=== PATIENT | female | born 1985 | race Caucasian/White ===

== ENCOUNTER 2017-12-30 20:49 | Emergency (ER) ==
[2017-12-30 21:01] VITALS: BP 124/90; TEMP 98.6; BMI 22.8
--- NOTE | 2017-12-30 21:53 | CT ---
EXAM: CT of the chest without contrast. HISTORY: Fever. COMPARISON: None. TECHNIQUE: Contiguous axial images were obtained from the lung apices to the upper abdomen at 5 mm i ntervals. Sagittal and coronal reformats reviewed. No contrast. FINDINGS: The lung windows show no lobar consolidation or effusion. Focal ground-glass opacities se en in the right upper lobe, measuring eight and 5 mm in size. No definite solid nodules are identifi ed. There is no pleural thickening or effusion. The pulmonary interstitium is normal. The heart si ze is within normal limits. There is no significant mediastinal or hilar adenopathy. Limited views of the upper abdomen are unremarkable. IMPRESSION: 1. No lobar consolidation or effusion. 2. Two small ground-glass opacities in the right upper lobe may be secondary to an early infectious process. Correlate with history symptoms recommend short-term follow-up in 3 months to exclude under lying nodularity.
--- NOTE | 2017-12-30 21:58 | CT ---
EXAM: CT maxillofacial without intravenous contrast 12/30/2017. Sagittal and coronal reformatted im ages obtained HISTORY: Question dental abscess COMPARISON: None. FINDINGS: No acute osseous abnormality of the facial bones. The paranasal sinuses are normally aera radha. Chronic leftward deviation of the osseous nasal septum. Severe dental disease. There are multiple bilateral maxillary and mandibular areas of dental abscess . There is no evidence of surrounding soft tissue abscess. The visualized portion of the airway remains patent and within the midline. IMPRESSION: 1. Severe dental disease. There are multiple areas of bilateral maxillary and mandibular dental abs cess. Dental consultation is advised. 2. There is no evidence of surrounding soft tissue abscess. 3. Normal aeration of the paranasal sinuses.
--- NOTE | 2017-12-30 22:02 | CT ---
EXAM: Noncontrast CT of the abdomen and pelvis. HISTORY: Fever. COMPARISON: None. TECHNIQUE: Contiguous axial images at 3 mm intervals were obtained from lung bases through the pelvi s. No contrast was given. Coronal reformats were reviewed. FINDINGS: The study is limited without contrast. CHEST: The lung bases show no lobar consolidation or effusion. The heart size is within normal limi ts. ABDOMEN: Evaluation of the soft tissue organs is limited without contrast. LIVER: Noncontrast images of the liver show no solid mass lesion or intrahepatic ductal dilatation. BILIARY: The gallbladder is normally distended. No gallstones are noted. No pericholecystic fluid or inflammation. The common bile duct is normal. SPLEEN: The spleen is unremarkable. PANCREAS: The pancreas shows no mass lesion or peripancreatic inflammation. ADRENAL GLANDS: The adrenal glands are normal. RENAL: The kidneys show no hydronephrosis or nephrolithiasis. There are no obstructing ureteral sto marci. No solid mass lesions are identified. RETROPERITONEUM: The aorta is unopacified. No aneurysm is identified. No significant aortic calcif ications are seen. There is no retroperitoneal or mesenteric adenopathy. BOWEL: The bowel is unopacified. There is no obstruction or inflammatory change. There is no free fluid or free air. No significant inflammatory changes are seen. The appendix is identified and is normal. PELVIS: BLADDER: The bladder is not well distended which limits evaluation.. GENITOURINARY STRUCTURES: Noncontrast images of the uterus and ovaries are unremarkable. OSSEOUS STRUCTURES: The osseous structures are normal for age. IMPRESSION 1. No acute intra-abdominal abnormality. Limited study without contrast. No obstructing ureteral s tones. 2. The appendix is normal.
[2017-12-30] MEDS ORDERED: AUGMENTIN 875-125 MG TAB PO STA (22:05)
[2017-12-30] MEDS ORDERED: K-DUR PO STA (22:06)
--- NOTE | 2017-12-30 22:08 | ED.PDOC ---
General ED Provider: Dr. MAKAYLA BAUER-ER Chief Complaint: Fever Stated Complaint: wilmer got fever and i think its coming from my teeth Time Seen by Physician: 22:06 Mode of Arrival: Walk-In Information Source: Patient Exam Limitations: No limitations Nursing and Triage Documentation Reviewed and Agree: Yes Does patient meet sepsis criteria?: No System Inflammatory Response Syndrome: Not Applicable Sepsis Protocol: For patient's 13 years and over: Temp is 96.8 and below OR 101 and greater Pulse >90 BPM Resp >20/minute Acutely Altered Mental Status Are patient's symptoms suggestive of a new infection, such as: -Pneumonia -Skin, Soft Tissue -Endocarditis -UTI -Bone, Joint Infection -Implantable Device -Acute Abdominal Infection -Wound Infection -Meningitis -Blood Stream Catheter Infection -Unknown Miscellaneous Complaint Exam - Febrile Illness/Adult Complaint/Exam Onset/Duration: 2 days Symptoms Are: Still present Timing: Intermittent Initial Severity: Mild Current Severity: Mild Aggravating: Reports: None Alleviating: Reports: None Associated Signs and Symptoms: Denies: Headache, Fluid intake, Short of air, Cough, Sore throat, Nausea, Vomiting, Chills, Diaphoresis, Dysuria, Arthralgia, Stiff neck, Myalgia, Rash, Altered mental status Related History: Reports: Similar episode Pseudomonas Risk Factors: Reports: None Serious Bacterial Infection Risk Factors: Reports: None Current Antibiotic Use: No Differential Diagnoses: Pneumonia, Pyelonephritis Review of Systems - Review Of Systems Constitutional: Reports: Fever Eyes: Reports: No symptoms Ears, Nose, Mouth, Throat: Reports: Mouth pain Respiratory: Reports: No symptoms Cardiac: Reports: No symptoms GI: Reports: No symptoms : Reports: No symptoms Musculoskeletal: Reports: No symptoms Skin: Reports: No symptoms Neurological: Reports: No symptoms Endocrine: Reports: No symptoms Hematologic/Lymphatic: Reports: No symptoms All Other Systems: Reviewed and Negative Past Medical History - Past Medical History Endocrine: Reports: Unknown Cardiovascular: Reports: Unknown Respiratory: Reports: Unknown Hematological: Reports: Unknown Gastrointestinal: Reports: Unknown Genitourinary: Reports: Unknown Neuro/Psych: Reports: Unknown Musculoskeletal: Reports: Unknown Cancer: Reports: Unknown Last Menstrual Period: PRESENTLY - Surgical History General Surgical History: Reports: Unknown - Family History Family History: Reports: Unknown - Social History Smoking Status: Former smoker Hx Substance Use: Yes (CRACK, HAS BEEN CLEAN FOR 2 YEARS) Alcohol Screening: None - Immunizations Tetanus Shot up to Date: Yes Physical Exam - Physical Exam Appearance: Well-appearing, No pain distress, Well-nourished Eyes: PROSPER, EOMI, Conjunctiva clear ENT: Ears normal, Nose normal, Oropharynx normal Neck: Supple Respiratory: Airway patent, Breath sounds clear, Breath sounds equal, Respirations nonlabored Cardiovascular: RRR GI/: Soft Musculoskeletal: Normal strength Skin: Warm, Dry, Normal color Neurological: Sensation intact, Motor intact, Reflexes intact, Cranial nerves intact, Alert, Oriented Psychiatric: Affect appropriate, Mood appropriate Interpretation - Radiology Interpretation Radiology Interpretation By: Radiologist Radiology Results: Positive Exam Interpreted: CT Scan Critical Care Note - Critical Care Note Total Time (mins): 0 Course - Course Hematology/Chemistry: 12/30/17 21:15 12/30/17 21:15 Orders, Labs, Meds: Lab Review 12/30/17 12/30/17 12/30/17 21:15 21:15 21:15 WBC 11.39 H RBC 5.00 Hgb 14.5 Hct 42.1 MCV 84.2 MCH 29.0 MCHC 34.4 RDW Coeff of Alina 12.4 Plt Count 308 Immature Gran % (Auto) 0.3 Neut % (Auto) 59.5 Lymph % (Auto) 28.4 [place] % (Auto) 7.4 Eos % (Auto) 4.0 Baso % (Auto) 0.4 Immature Gran # (Auto) 0.0 Neut # (Auto) 6.8 Lymph # (Auto) 3.2 [place] # (Auto) 0.8 Eos # (Auto) 0.5 Baso # (Auto) 0.1 Sodium 143 Potassium 3.0 L Chloride 110 H Carbon Dioxide 23 Anion Gap 13.0 BUN 13 Creatinine 0.89 Estimated GFR (MDRD) 74.00 BUN/Creatinine Ratio 14.60 Glucose 122 H Calcium 9.4 Total Bilirubin 1.0 AST 13 L ALT 16 Alkaline Phosphatase 61 Total Protein 7.2 Albumin 4.1 Globulin 3.1 Albumin/Globulin Ratio 1.32 Urine Color Yellow Urine Clarity Clear Urine pH 5.5 Ur Specific [place] >=1.030 Urine Protein 1+ Urine Glucose (UA) Negative Urine Ketones Negative Urine Blood Trace-lysed Urine Nitrite Negative Urine Bilirubin 1+ Urine Urobilinogen 0.2 Ur Leukocyte Esterase Negative Urine Microscopic RBC 2-5 Urine Microscopic WBC 0-2 Ur Squamous Epith Cells 2-5 Urine Bacteria 2+ Urine Mucus 3+ Urine Test 12/30/17 21:15 WBC RBC Hgb Hct MCV MCH MCHC RDW Coeff of Alina Plt Count Immature Gran % (Auto) Neut % (Auto) Lymph % (Auto) [place] % (Auto) Eos % (Auto) Baso % (Auto) Immature Gran # (Auto) Neut # (Auto) Lymph # (Auto) [place] # (Auto) Eos # (Auto) Baso # (Auto) Sodium Potassium Chloride Carbon Dioxide Anion Gap BUN Creatinine Estimated GFR (MDRD) BUN/Creatinine Ratio Glucose Calcium Total Bilirubin AST ALT Alkaline Phosphatase Total Protein Albumin Globulin Albumin/Globulin Ratio Urine Color Urine Clarity Urine pH Ur Specific [place] Urine Protein Urine Glucose (UA) Urine Ketones Urine Blood Urine Nitrite Urine Bilirubin Urine Urobilinogen Ur Leukocyte Esterase Urine Microscopic RBC Urine Microscopic WBC Ur Squamous Epith Cells Urine Bacteria Urine Mucus Urine Test Negative Orders Category Date Time Status BLOOD CULTURE (ED ONLY) Stat LAB 12/30/17 21:15 Received CBC W/ AUTO DIFF Stat LAB 12/30/17 21:15 Completed COMPREHENSIVE METABOLIC PANEL Stat LAB 12/30/17 21:15 Completed MOLECULAR GROUP A STREP Stat LAB 12/30/17 21:15 Completed URINALYSIS C & S IF INDICATED Stat LAB 12/30/17 21:15 Completed URINE CULTURE Stat LAB 12/30/17 21:15 Received URINE Stat LAB 12/30/17 21:15 Completed Amoxicillin/Potassium Clav [Augmentin 875-125 mg Tab] MEDS 12/30/17 22:05 Stat 1 tab PO ONCE STA Potassium Chloride [K-Dur] MEDS 12/30/17 22:06 Stat 40 meq PO ONCE STA CT ABDOMEN/PELVIS WO CONTRAST Stat RADS 12/30/17 21:[address] CHEST W/O CONTRAST Stat RADS 12/30/17 21:[address] MAXILLOFACIAL W/O CONTRAST Stat RADS 12/30/17 21:03 Completed Medications Generic Name Dose Route Start Last Admin Trade Name Freq PRN Reason Stop Dose Admin Amoxicillin/Clavulanate Potassium 1 tab 12/30/17 22:05 Augmentin 875-125 Mg Tab PO 12/30/17 22:06 ONCE STA Potassium Chloride 40 meq 12/30/17 22:06 K-Dur PO 12/30/17 22:07 ONCE STA Vital Signs: Temp Pulse Resp BP Pulse Ox 12/30/17 20:50 98.6 F 108 H 20 124/90 98 Departure - Departure Time of Disposition: 22:09 Disposition: HOME SELF-CARE Discharge Problem: Dental abscess, Abnormal chest CT Instructions: Dental Abscess (ED) Condition: Good Pt referred to PMD for follow-up: No IPMP verified?: No Additional Instructions: augmentin 875mg bid x 7 days---tylenol for temp---see clinic in the next week to have cxr to evaluate abnormality on chest ct Allergies/Adverse Reactions: Allergies No Known Drug Allergies Adverse Reaction (Verified 12/30/17 21:00) Home Medications: Ambulatory Orders 1 [No Reported Medications] 12/30/17 Disposition Discussed With: Patient, Family
== END 2017-12-30 22:20 | disposition home or self-care (01) ==
LOC: ED 20:49
DX: K04.7 Periapical abscess without sinus (principal); R91.8 Other nonspecific abnormal finding of lung field
CPT/HCPCS: 36415; 80053; 81001; 81025; 85025; 87040; 87086; 87651; 99283